=== PATIENT | male | born 1945 | race Caucasian/White ===

== ENCOUNTER 2022-09-16 13:08 | Emergency (ER) | payer MEDICARE ==
[~2022-09-16] VITALS: Ht 172.7 cm; Wt 136.1 kg
[2022-09-16] MEDS ORDERED: METO100ER PO (14:24)
[2022-09-16] MEDS ORDERED: SPIR25 PO (14:25)
[2022-09-16] MEDS ORDERED: EZET10 PO (14:25)
[2022-09-16] MEDS ORDERED: ATOR40TA PO (14:26)
[2022-09-16] MEDS ORDERED: ENTRESTO 24 MG1 EACH PO (14:26)
[2022-09-16] MEDS ORDERED: CELE200 PO (14:26)
[2022-09-16] MEDS ORDERED: Norco 5-325 Ta1 EACH PO (14:27)
[2022-09-16] MEDS ORDERED: OMEP20ER PO (14:27)
[2022-09-16] MEDS ORDERED: NITR.4SL SL (14:28)
[2022-09-16] MEDS ORDERED: WARF2.5 PO (14:28)
[2022-09-16] MEDS ORDERED: IBUP400 PO (14:29)
[2022-09-16 14:41] LABS: BASOPHILS ABSOLUTE AUTO 0.02 K/mm3 (0.00-0.23); BASOPHILS PERCENT AUTO 0 % (0-2); EOSINOPHILS PERCENT AUTO 1 % (0-6); Hematocrit 39.6 % (37.0-53.0); IMMATURE GRAN ABSOLUTE AUTO 0.02 K/mm3 (0.00-0.10); IMMATURE GRAN PERCENT AUTO 0 % (0-1); LYMPHOCYTES ABSOLUTE AUTO 1.36 K/mm3 (0.84-5.20); LYMPHOCYTES PERCENT AUTO 19 % (21-46); MONOCYTES ABSOLUTE AUTO 0.49 K/mm3 (0.16-1.47); MONOCYTES PERCENT AUTO 7 % (4-13); Mean Corpuscular HGB 32.7 pg (26.0-34.0); Mean Corpuscular HGB Conc 32.8 g/dL (31.5-36.5); Mean Corpuscular Volume 100 fL (80-100); Mean Platelet Volume 11.6 fL (9.1-12.4); NEUTROPHILS PERCENT AUTO 72 % (41-73); Platelet Count 189 K/mm3 (150-400); RDW Coefficient Variation 14.1 % (11.7-14.2); RDW Standard Deviation 51.6 fL (35.1-46.3); Red Blood Cell Count 3.97 M/mm3 (4.30-5.90); White Blood Cell Count 7.19 K/mm3 (4.00-11.30)
[2022-09-16 14:56] LABS: Albumin, Blood 3.5 g/dL (3.4-5.0); Albumin/Globulin Ratio 1.3 (0.8-1.8); Bilirubin, Total 0.6 mg/dL (0.1-1.0); Calcium, Blood 8.7 mg/dL (8.5-10.1); Creatinine, Blood 0.87 mg/dL (0.60-1.20); Globulin, Blood 2.7 g/dL (2.2-4.0); Potassium, Blood 4.3 mmol/L (3.5-5.5); Total Protein, Blood 6.2 g/dL (6.4-8.2)
[2022-09-16 15:44] LABS: International Normalized Ratio 2.79; Prothrombin Time Results 27.4 Sec (9.7-11.5)
== END 2022-09-16 18:22 | disposition home or self-care (01) ==
LOC: ER 13:08
PROVIDERS: Emergency Medicine
DX: I48.91 Unspecified atrial fibrillation (principal); I10 Essential (primary) hypertension; Z79.899 Other long term (current) drug therapy
CPT/HCPCS: 71045; 80053; 83880; 84484; 85025; 85610; 93005; 93010; J2704; J3010; J7030

== ENCOUNTER 2024-01-06 15:16 | Emergency (ER) | payer MEDICARE ==
[~2024-01-06] VITALS: Ht 172.7 cm; Wt 127.0 kg
[~2024-01-06 15:16] MED LIST: ATOR40TA PO; CELE200 PO; ENTRESTO 24 MG1 EACH PO; EZET10 PO; IBUP400 PO; METO100ER PO; NITR.4SL SL; Norco 5-325 Ta1 EACH PO; OMEP20ER PO; SPIR25 PO; WARF2.5 PO
[2024-01-06 17:22] LABS: BASOPHILS ABSOLUTE AUTO 0.03 K/mm3 (0.00-0.23); BASOPHILS PERCENT AUTO 0 % (0-2); EOSINOPHILS ABSOLUTE AUTO 0.14 K/mm3 (0.00-0.68); EOSINOPHILS PERCENT AUTO 2 % (0-6); Hematocrit 39.1 % (37.0-53.0); Hemoglobin 12.9 g/dL (13.5-17.5); IMMATURE GRAN ABSOLUTE AUTO 0.02 K/mm3 (0.00-0.10); IMMATURE GRAN PERCENT AUTO 0 % (0-1); LYMPHOCYTES ABSOLUTE AUTO 1.35 K/mm3 (0.84-5.20); LYMPHOCYTES PERCENT AUTO 20 % (21-46); MONOCYTES ABSOLUTE AUTO 0.39 K/mm3 (0.16-1.47); MONOCYTES PERCENT AUTO 6 % (4-13); Mean Corpuscular HGB 33.1 pg (26.0-34.0); Mean Corpuscular Volume 100 fL (80-100); NEUTROPHILS ABSOLUTE AUTO 4.75 K/mm3 (1.96-9.15); NEUTROPHILS PERCENT AUTO 71 % (41-73); Platelet Count 153 K/mm3 (150-400); RDW Coefficient Variation 13.6 % (11.7-14.2); RDW Standard Deviation 50.3 fL (35.1-46.3); White Blood Cell Count 6.68 K/mm3 (4.00-11.30)
[2024-01-06 17:38] LABS: International Normalized Ratio 2.81; Prothrombin Time Results 27.8 Sec (9.7-11.5)
[2024-01-06 17:54] LABS: Alanine Aminotransfer (ALT/SGP 26 U/L (12-78); Albumin, Blood 3.8 g/dL (3.4-5.0); Albumin/Globulin Ratio 1.2 (0.8-1.8); Alk Phos 96 U/L (50-136); Anion Gap Unable to Calculate mmol/L (6-16); Aspartate Aminotrans (AST/SGOT 21 U/L (12-37); Bilirubin, Total 0.4 mg/dL (0.1-1.0); Blood Urea Nitrogen 16 mg/dL (8-24); Bun/Creatinine Ratio 16.8 (12.0-20.0); CO2, Blood 33 mmol/L (21-32); Calcium, Blood 8.5 mg/dL (8.5-10.1); Chloride, Blood 108 mmol/L (98-108); Creatinine, Blood 0.95 mg/dL (0.60-1.20); Globulin, Blood 3.1 g/dL (2.2-4.0); Glomerular Filtration Rate 82 (60-); Glucose, Blood 130 mg/dL (70-99); Potassium, Blood 4.1 mmol/L (3.5-5.5); Sodium, Blood 140 mmol/L (136-145); Total Protein, Blood 6.9 g/dL (6.4-8.2)
[2024-01-06] MEDS ORDERED: Propofol 10mg/ml 20 ml Vial (Procedural) IV SCH (19:15)
[2024-01-06] MEDS ORDERED: NS 1,000 ML IV ONE (19:29)
[2024-01-06] MEDS ORDERED: NS 1,000 ML IV SCH (19:55)
[2024-01-06 20:04] VITALS: BP 137/93
== END 2024-01-06 20:23 | disposition home or self-care (01) ==
LOC: ER 15:16
PROVIDERS: Emergency Medicine
DX: I48.91 Unspecified atrial fibrillation (principal); I10 Essential (primary) hypertension; Z88.8 Allergy status to other drugs, medicaments and biological substances; Z79.899 Other long term (current) drug therapy; Z79.01 Long term (current) use of anticoagulants; Z99.89 Dependence on other enabling machines and devices
CPT/HCPCS: 80053; 83880; 84484; 85025; 85610; 92960; 93005; 93010; 99285-25; J2704; J7030